=== PATIENT | female | born 1940 | race African-American/Black ===

== ENCOUNTER 2025-01-06 08:48 | Observation (INO) | payer OTHER ==
[2025-01-06 08:57] VITALS: BMI 25.7
[2025-01-06] MEDS ORDERED: ACETAMINOPHEN INJECTION 100 ML ONE (10:18)
[2025-01-06] MEDS ORDERED: LIDOCAINE 5% TOPICAL PATCH ONE (10:19)
[2025-01-06] MEDS: LIDOCAINE 5% TOPICAL PATCH TP ONE (10:25)
[2025-01-06] MEDS: ACETAMINOPHEN 1000 MG/100 ML BAG IVPB ONE (10:25)
[2025-01-06 10:33] LABS: ABSOLUTE IMMATURE GRANULOCYTES 0.02 x10^3/uL (0.0-0.031); BASOPHILS # 0.06 x10^3/uL (0.01-0.08); EOSINOPHILS # 0.09 x10^3/uL (0.04-0.36); HEMATOCRIT 41.1 % (34.1-44.9); HEMOGLOBIN 13.3 g/dL (11.2-15.7); MCHC 32.4 g/dl (32.2-35.5); MEAN CELL VOLUME 96.3 fl (79.4-94.8); MEAN PLT VOLUME 10.1 fl (9.4-12.3); MONOCYTE # 0.47 x10^3/uL (0.24-0.86); MONOCYTE % 10.4 % (4.7-12.5); PLATELET COUNT 208 x10^3/uL (182-369); RDW 13.3 % (12.5-17.0)
[2025-01-06 10:34] LABS: EPI CELLS 4 /uL (0-25.1); HYALINE CASTS 0 /uL (0-3.1); URINE APPEARANCE CLEAR; URINE BACTERIA 18 /uL (0-1359); URINE BILIRUBIN NEGATIVE (NEGATIVE); URINE COLOR YELLOW; URINE GLUCOSE (UA) NEGATIVE (NEGATIVE); URINE KETONE NEGATIVE (NEGATIVE); URINE LEUK ESTERASE NEGATIVE (NEGATIVE); URINE NITRITE NEGATIVE (NEGATIVE); URINE PROTEIN NEGATIVE (NEGATIVE); URINE RBC 84 /uL (0-23.9); URINE UROBILINOGEN 0.2 mg/dL (0.2-1.0); URINE WBC 48 /uL (0-25.8)
[2025-01-06 10:41] LABS: INR 1.01 (0.83-1.09)
[2025-01-06 10:44] LABS: ACTIVATED PTT 27.8 SECONDS (25.2-36.5)
[2025-01-06 10:50] LABS: POTASSIUM 4.1 mmol/L (3.5-5.1)
[2025-01-06 10:52] LABS: ALBUMIN 3.7 g/dl (3.4-5.0); BLOOD UREA NITROGEN 13.9 mg/dL (7-18); CALCIUM 9.6 mg/dL (8.5-10.1)
[2025-01-06 10:57] LABS: BILIRUBIN,TOTAL 0.5 mg/dL (0.2-1)
[2025-01-06 11:00] LABS: N-TERMINAL BNP 43.1 pg/ml (5-450)
[2025-01-06 11:13] LABS: CREATININE 1.1 mg/dL (0.55-1.3)
[2025-01-06 12:05] LABS: HCV DIAGNOSTIC IN-HOUSE W/RFLX NON-REACTIVE (NONREACTIVE); HIV INTERPRETATION NEGATIVE (NEGATIVE)
[2025-01-06] MEDS: LISINOPRIL 20 MG TABLET PO ONE (15:44)
[2025-01-06] MEDS: LIDOCAINE PATCH REMOVAL MC ONE (21:18)
[2025-01-06] MEDS: ATORVASTATIN CA 20 MG TABLET (FP) PO SCH (21:18)
[2025-01-07 07:51] LABS: ABSOLUTE IMMATURE GRANULOCYTES 0.01 x10^3/uL (0.0-0.031); BASOPHILS # 0.06 x10^3/uL (0.01-0.08); EOSINOPHIL % 3.6 % (0.7-5.8); EOSINOPHILS # 0.15 x10^3/uL (0.04-0.36); HEMOGLOBIN 13.1 g/dL (11.2-15.7); MCHC 31.2 g/dl (32.2-35.5); MEAN CELL VOLUME 98.4 fl (79.4-94.8); MONOCYTE # 0.41 x10^3/uL (0.24-0.86); MONOCYTE % 9.9 % (4.7-12.5); PLATELET COUNT 185 x10^3/uL (182-369); RDW 13.1 % (12.5-17.0)
[2025-01-07 08:09] LABS: POTASSIUM 4.1 mmol/L (3.5-5.1)
[2025-01-07 08:17] LABS: CALCIUM 9.4 mg/dL (8.5-10.1)
[2025-01-07 08:18] LABS: ALBUMIN 3.2 g/dl (3.4-5.0); CREATININE 0.9 mg/dL (0.55-1.3)
[2025-01-07 08:19] LABS: BILIRUBIN,TOTAL 0.5 mg/dL (0.2-1)
[2025-01-07 08:20] LABS: BLOOD UREA NITROGEN 13.9 mg/dL (7-18); TOT PROT 6.2 g/dl (6.4-8.2)
[2025-01-07 08:25] LABS: LDL CHOLESTEROL (ONLY SJRH) 86 mg/dL (5-100)
[2025-01-07 08:27] LABS: HDL CHOLESTEROL 68 mg/dL (40-60)
[2025-01-07 09:13] LABS: CHOLESTEROL 165 mg/dL (50-200)
[2025-01-07] MEDS ORDERED: PATIENT'S OWN MEDICATION (NON-FORMULARY) (Lisinopril/Hydrochlorothiazide [Lisinopril-Hctz PO SCH (10:00)
[2025-01-07] MEDS: CLOPIDOGREL BISULFATE 75 MG TABLET (FP) PO SCH (10:53)
[2025-01-07] MEDS: amLODIPine BESYLATE 5 MG TABLET (FP) PO SCH (10:53)
[2025-01-07] MEDS: LISINOPRIL 20 MG TABLET PO SCH (10:53)
[2025-01-07] MEDS: HYDROCHLOROTHIAZIDE 12.5 MG CAPSULE (FP) PO SCH (10:53)
[2025-01-07] MEDS: ENOXAPARIN NA (PORCINE) 40 MG/0.4 ML DISP.SYRIN SQ SCH (11:53)
[2025-01-08] MEDS: amLODIPine BESYLATE 10 MG TABLET (FP) PO SCH (09:42)
[2025-01-08] MEDS: LISINOPRIL 20 MG TABLET PO SCH (09:42)
[2025-01-08] MEDS: SENNOSIDES 8.6MG TABLET (FP) PO PRN (22:22)
[2025-01-10] MEDS ORDERED: REGADENOSON 0.4 MG/5 ML PRE-FILLED SYRINGE IVPUSH ONE (12:19)
[2025-01-10] MEDS: REGADENOSON 0.4 MG/5 ML PRE-FILLED SYRINGE IVPUSH ONE (12:38)
[2025-01-10 15:32] VITALS: BP 130/72; PULSE 70; RESP 18; TEMP 98.1
== END 2025-01-10 16:49 | disposition home or self-care (01) ==
LOC: JER 08:48 → JERBED 11:09 → J4S 13:45
PROVIDERS: ADMIT Internal Medicine; ATTEND Internal Medicine
PROC: 3E033NZ Introduction of Analgesics, Hypnotics, Sedatives into Peripheral Vein, Percutaneous Approach (ICD-10-PCS; principal; 2025-01-06)
PROC: 3E033GC Introduction of Other Therapeutic Substance into Peripheral Vein, Percutaneous Approach (ICD-10-PCS; 2025-01-06)
DX: R07.9 Chest pain, unspecified (principal); R42 Dizziness and giddiness; M25.512 Pain in left shoulder; I10 Essential (primary) hypertension; E11.9 Type 2 diabetes mellitus without complications; E78.5 Hyperlipidemia, unspecified; Z86.73 Personal history of transient ischemic attack (TIA), and cerebral infarction without residual deficits; Z87.891 Personal history of nicotine dependence
CPT/HCPCS: 36415; 70450-TC; 71045-TC-FY; 73030-TC-LT-FY; 73200-TC-RT; 78452-TC; 80053; 80061; 81003; 82962; 83880; 84484; 85025; 85610; 85730; 86803; 87086; 87389; 93005; 93010; 93017; 93306-TC; 99285-25; A9502; G0378; J2785